=== PATIENT | female | born 2000 | race Caucasian/White ===

== ENCOUNTER 2021-02-27 16:24 | Emergency (ER) | payer SELFPAY ==
[2021-02-27 17:01] LABS: Absolute Lymphocytes (CBC) 1.8 K/uL (0.7-4.9); Basophils % 1.3 % (0-1.3); Hematocrit 29.8 % (36.0-45.0); MPV 8.4 fL (7.6-11.3); RBC Red Blood Cell Count 4.11 M/uL (3.86-4.86)
--- NOTE | 2021-02-27 17:15 | RAD REPORT ---
EXAM DESCRIPTION: CT - Head Brain Wo Cont - 02/27/2021 4:58 pm CLINICAL HISTORY: Alteration of awareness/confusion COMPARISON: None TECHNIQUE: Computed axial tomography of the head was obtained. IV contrast was not requested. All CT scans are performed using dose optimization technique as appropriate and may include automated exposure control or mA/KV adjustment according to patient size. FINDINGS: An intracranial bleed is not seen . The ventricles are normal in caliber. No extra-axial fluid collection is noted. Fluid within the sinuses/ mastoids is not seen. IMPRESSION: No acute intracranial abnormality is seen. If patient's symptoms persist MRI of the bra in would be recommended.
[2021-02-27 17:18] LABS: ALT/SGPT 31 U/L (12-78); AST/SGOT 36 U/L (15-37); Alkaline Phosphatase 91 U/L (45-117); BUN Blood Urea Nitrogen 19 mg/dL (7-18); Bicarbonate 26 mmol/L (21-32); Bilirubin Direct < 0.1 mg/dL (0-0.2); Bilirubin Total 0.3 mg/dL (0.2-1.0); Glucose Level 68 mg/dL (74-106); Potassium 3.4 mmol/L (3.5-5.1); Protein, Total 8.1 g/dL (6.4-8.2); Sodium Level 143 mmol/L (136-145)
[2021-02-27 17:57] LABS: Urine Blood Trace-intact (Negative); Urine Glucose Negative (Negative); Urine Protein 1+ (Negative); Urine Specific Gravity 1.025 (1.005-1.030)
[2021-02-27 17:57] LABS: Protime INR 1.03
[2021-02-27 19:04] LABS: Barbiturates NEGATIVE (NEGATIVE); Benzodiazepines NEGATIVE (NEGATIVE); Cocaine NEGATIVE (NEGATIVE); METHAMPHETAM NEGATIVE (NEGATIVE); Methadone NEGATIVE (NEGATIVE); Opiates NEGATIVE (NEGATIVE); Phencyclidine NEGATIVE (NEGATIVE); THC Cannibis POSITIVE (NEGATIVE)
[2021-02-27 19:08] LABS: Urine Bacteria 20-50 /HPF (<20); Urine Mucus 2+ /HPF (NONE SEEN)
[2021-02-27 20:22] LABS: Anisocytosis 1+; Blood Morphology Comment NOT SEEN (NOT SEEN); Platelet Estimate INCR; White Blood Cell Scan OK (OK)
--- NOTE | 2021-02-27 22:29 | ER ---
Nurse's Notes [facility] Name: Joanne Pitt Age: 20 yrs Sex: Female : 2000 Arrival Date: 02/27/2021 Time: 16:25 Bed 5 Private MD: Diagnosis: Unspecified psychosis not due to a substance or known physiological condition;Bipolar disorder, unspecified;Abuse of other non-psychoactive substances;UTI/ Urinary tract infection, site not specified;Anemia, unspecified Presentation: 02/27 16:26 Chief complaint: [employer] Officer Oumar brought in pt, stated that she's been in long term for sv 24 hours and started banging her head on the wall, and making incomprehensible words. Coronavirus screen: Vaccine status: Patient reports being unvaccinated. Client denies travel out of the [place] in the last 14 days. At this time, the client does not indicate any symptoms associated with coronavirus-19. Ebola Screen: No symptoms or risks identified at this time. Initial Sepsis Screen: Does the patient meet any 2 criteria? No. Patient's initial sepsis screen is negative. Does the patient have a suspected source of infection? No. Patient's initial sepsis screen is negative. Onset of symptoms was February 27, 2021. 16:26 Method Of Arrival: Law Enforcement: [facility] 16:26 Acuity: KASSIE 3 sv 02/28 09:02 Risk Assessment: Do you want to hurt yourself or someone else? Patient reports no jd3 desire to harm self or others. Triage Assessment: 02/27 16:31 General: Appears in no apparent distress. comfortable, slender, Behavior is calm, sv cooperative, appropriate for age. Pain: Denies pain. Neuro: Level of Consciousness is awake, alert, obeys commands, Oriented to person, place, time, situation, Moves all extremities. Full function Gait is steady, Speech is normal. Respiratory: Airway is patent Respiratory effort is even, unlabored, Respiratory pattern is regular, symmetrical. Derm: Skin is pink, warm \T\ dry. Historical: - Allergies: 16:30 No Known Allergies; sv - PMHx: 16:30 Depressive disorder; Anxiety; Bipolar disorder; sv - Immunization history:: Adult Immunizations unknown. - Social history:: Smoking status: unknown Patient uses street drugs, marijuana, Methamphetamine (Meth) psilocybin, xanax. Screenin:28 Abuse screen: Denies threats or abuse. Denies injuries from another. Nutritional hb screening: No deficits noted. Tuberculosis screening: No symptoms or risk factors identified. Fall Risk None identified. Assessment: 20:00 Reassessment: Patient and/or family updated on plan of care and expected duration. Pain ea level reassessed. Pt restless . Redirected easily. 02/28 01:00 Reassessment: Patient and/or family updated on plan of care and expected duration. Pain ea level reassessed. Pt resting with eyes closed respirations even and unlabored, no obvious s/s of pain or discomfort noted at this time. 03:00 Reassessment: Patient and/or family updated on plan of care and expected duration. Pain ea level reassessed. 04:00 Reassessment: Pt resting with eyes closed respirations even and unlabored, no obvious ea s/s of pain or discomfort noted at this time. 05:00 Reassessment: Patient and/or family updated on plan of care and expected duration. Pain ea level reassessed. Pt resting with eyes closed respirations even and unlabored, no obvious s/s of pain or discomfort noted at this time. 06:00 Reassessment: Patient and/or family updated on plan of care and expected duration. Pain ea level reassessed. Pt resting with eyes closed respirations even and unlabored, no obvious s/s of pain or discomfort noted at this time. 07:00 Reassessment: Patient and/or family updated on plan of care and expected duration. Pain jd3 level reassessed. pt up at bedside pacing around room muttering to self. denies pain at this time. pt denies wanting to hurt self. General: Appears in no apparent distress. comfortable, Behavior is calm, cooperative, appropriate for age. Pain: Denies pain. Neuro: Level of Consciousness is awake, alert, obeys commands, confused, Oriented to person. Cardiovascular: Denies chest pain, Capillary refill < 3 seconds Patient's skin is warm and dry. Respiratory: Airway is patent Respiratory effort is even, unlabored, Respiratory pattern is regular, symmetrical. 08:00 Reassessment: No changes from previously documented assessment. Patient and/or family jd3 updated on plan of care and expected duration. Pain level reassessed. 09:00 Reassessment: Patient and/or family updated on plan of care and expected duration. Pain jd3 level reassessed. Dr. Pierson at bedside talking discussing plan of care with pt. 09:05 Reassessment: pt states she is willing to go home, gave me her mother phone # iw [phone], left voice mail. 10:00 Reassessment: Patient appears in no apparent distress at this time. Patient and/or jd3 family updated on plan of care and expected duration. Pain level reassessed. pt continens to pace room and talking to self. medication offered to assist pt with calming down. 10:42 Reassessment: Patient and/or family updated on plan of care and expected duration. Pain jd3 level reassessed. medicated to help with anxious pacing and restlessness. charge nurse and nurse at bedside discussing plan of care with pt. 11:00 Reassessment: Patient appears in no apparent distress at this time. Patient and/or jd3 family updated on plan of care and expected duration. Pain level reassessed. pt resting in bed, awake, even and unlabored respirations. 11:14 Reassessment: Patient and/or family updated on plan of care and expected duration. Pain jd3 level reassessed. pt resting in bed with eyes closed. even and unlabored respirations. 12:00 Reassessment: Patient appears in no apparent distress at this time. No changes from jd3 previously documented assessment. Patient and/or family updated on plan of care and expected duration. Pain level reassessed. 13:00 Reassessment: No changes from previously documented assessment. Patient and/or family jd3 updated on plan of care and expected duration. Pain level reassessed. 14:00 Reassessment: Patient appears in no apparent distress at this time. No changes from jd3 previously documented assessment. Patient and/or family updated on plan of care and expected duration. Pain level reassessed. 15:00 Reassessment: Patient and/or family updated on plan of care and expected duration. Pain jd3 level reassessed. pt up and pacing room again. denies pain or wanting to hurt self at this time. 16:00 Reassessment: No changes from previously documented assessment. Patient and/or family jd3 updated on plan of care and expected duration. Pain level reassessed. 17:00 Reassessment: No changes from previously documented assessment. Patient and/or family jd3 updated on plan of care and expected duration. Pain level reassessed. 18:00 Reassessment: No changes from previously documented assessment. Patient and/or family jd3 updated on plan of care and expected duration. Pain level reassessed. 19:00 Reassessment: No changes from previously documented assessment. Patient and/or family jd3 updated on plan of care and expected duration. Pain level reassessed. 19:35 Reassessment: Pt is confused and having visual hallucinations. Pt is becoming more jb4 agitated and no longer able to be redirected, continues to want to leave to go smoke. Code live called, see MAR for orders. 21:41 Reassessment: Pt is now resting peacefully in bed with eyes closed, respirations are jb4 even and unlabored with no s/s of pain or distress noted. 03/01 02:20 Reassessment: Patient appears in no apparent distress at this time. Patient and/or jb4 family updated on plan of care and expected duration. Pain level reassessed. Pt is now awake and walking around the room. Is acting appropriately at this time. given a sand which, chips, refill on water, and a warm blanket per request. 02:46 Reassessment: Patient appears in no apparent distress at this time. Patient and/or jb4 family updated on plan of care and expected duration. Pain level reassessed. Pt is now awake, ambulating around the room. no s/s of pain or distress noted. Respirations are even and unlabored. 05:59 Reassessment: Patient appears in no apparent distress at this time. Patient and/or jb4 family updated on plan of care and expected duration. Pain level reassessed. Pt is now fully awake, bathed in the bedside sink, given a gown and towel, reports hearing auditory hallucinations and talks about people who are not there. 07:02 General: Appears in no apparent distress. comfortable, Behavior is calm. General:. rb3 Pain: Denies pain. Neuro: Level of Consciousness is awake, alert, obeys commands, Oriented to person, place. Cardiovascular: Patient's skin is warm and dry. Respiratory: Airway is patent Respiratory effort is even, unlabored, Respiratory pattern is regular, symmetrical. 08:00 Reassessment: Patient appears in no apparent distress at this time. No changes from rb3 previously documented assessment. 09:00 Reassessment: Patient appears in no apparent distress at this time. Pt is walking rb3 around the room and folding her blankets. Patient denies pain at this time. 10:00 Reassessment: Patient appears in no apparent distress at this time. Patient and/or rb3 family updated on plan of care and expected duration. Pain level reassessed. Patient is alert, oriented x 3, equal unlabored respirations, skin warm/dry/pink. 10:30 Reassessment: Patient appears in no apparent distress at this time. No changes from rb3 previously documented assessment. Vital Signs: 02/27 16:26 BP 99 / 72; Pulse 88; Resp 14; Temp 98; Pulse Ox 99% ; Weight 45.36 kg; Height 4 ft. 11 sv in. (149.86 cm); Pain 0/10; 02/28 06:14 BP 99 / 67; Pulse 73; Resp 16; Pulse Ox 100% on R/A; oe 21:42 Pulse 83; Resp 14; Pulse Ox 99% on R/A; jb4 03/01 07:10 BP 101 / 69; Pulse 74; Resp 16; Pulse Ox 100% ; Pain 0/10; rb3 02/27 16:26 Body Mass Index 20.20 (45.36 kg, 149.86 cm) sv ED Course: 02/27 16:25 Patient arrived in ED. sv 16:26 Elma Matute, CHRISTIAN is Primary Nurse. sv 16:26 Blaze Headley PA is PHCP. cp 16:26 Meka Pratt MD is Attending Physician. cp 16:28 Arm band placed on. hb 16:30 Triage completed. sv 16:32 Patient has correct armband on for positive identification. Bed in low position. sv 16:58 CT Head Brain wo Cont In Process Unspecified. EDMS 17:00 PT-INR Sent. sv 17:00 Acetaminophen Sent. sv 17:00 Basic Metabolic Panel Sent. sv 17:00 CBC with Diff Sent. sv 17:00 ETOH Level Sent. sv 17:00 Hepatic Function Sent. sv 17:11 Test, Serum Sent. sv 17:50 Inserted saline lock: 20 gauge in left antecubital area, using aseptic technique. sv ,using aseptic technique. done by [facility] Blood collected. 22:33 Initiated transfer at [facility] with Joseph. Requested for exclusionary and pt chart to tt3 be faxed to for evaluation. Information passed on to VIET Wallace provider of pt and Mimi Barrios RN, primary nurse. 02/28 07:41 Attending Physician role handed off by Meka Pratt MD [facility] 07:41 Blaze Pierson MD is Attending Physician. [facility] 09:00 Pt clinical information faxed to [facility]. em1 10:16 Primary Nurse role handed off by Elma Matute RN jd3 10:16 Tommy Lubin RN is Primary Nurse. jd3 15:42 Blaze Headley [facility]. cp 03/01 10:55 No provider procedures requiring assistance completed. IV discontinued, intact, rb3 bleeding controlled, No redness/swelling at site. Pressure dressing applied. Administered Medications: 02/27 22:36 Drug: Geodon (ziprasidone) 10 mg Route: IM; Site: right deltoid; ea 02/28 00:00 Follow up: Response: No adverse reaction 02/27 22:41 Drug: Potassium Effervescent Tablet 50 mEq Route: PO; ea 02/28 00:00 Follow up: Response: No adverse reaction 06:00 Drug: Rocephin (cefTRIAXone) 1 grams Route: IV; Rate: per protocol; Site: left ea antecubital; 07:00 Follow up: Response: No adverse reaction; IV Status: Completed infusion jd3 10:41 Drug: Geodon (ziprasidone) 20 mg Route: IM; Site: right deltoid; jd3 11:40 Follow up: Response: No adverse reaction jd3 10:42 Drug: Ativan (LORazepam) 1 mg Route: IVP; Site: left antecubital; jd3 11:40 Follow up: Response: No adverse reaction jd3 19:35 Not Given (Physician Discretion): Benadryl (diphenhydrAMINE) 25 mg IVP once cp 19:36 Not Given (Physician Discretion): Ativan (LORazepam) 1 mg IVP once cp 19:44 Drug: Ativan (LORazepam) 1 mg {Note: Administered by CHRISTIAN Carrington.} Route: IVP; Site: left jb4 antecubital; 19:45 Drug: Geodon (ziprasidone) 10 mg Route: IM; Site: right gluteus; jb4 19:47 Drug: Nicoderm CQ Patch 21 mg/24 hr 1 patches Route: Transdermal; Site: anterior chest jb4 wall; 20:48 Not Given (Other Intervention Used): Ativan (LORazepam) 1 mg IM once jb4 Outcome: 02/27 22:28 ER care complete, transfer ordered by . sabi 03/01 10:55 AMA Left before signing form. rb3 Condition: stable 10:55 Discharge instructions given to Pt left the ED. rb3 Signatures: Dispatcher [employer] EDMS Elma Matute RN RN Blaze Vega MD MD cha Williams, Irene RN RN Akira Mitchell em1 Blaze Headley PA PA cp Baxter, Heather, RN RN Edin Trevino RN RN jb4 King Cruz Elena, RN RN ea Davies, Jonathon, RN RN jd3 Jett James tt3 Sugar Troy RN RN rb3 Corrections: (The following items were deleted from the chart) 02/28 09:26 09:22 Reassessment: iw iw 10:16 07:00 Neuro: Level of Consciousness is awake, alert, obeys commands, confused, Oriented jd3 to person, place, time, jd3 10:44 10:42 Reassessment: Patient and/or family updated on plan of care and expected jd3 duration. Pain level reassessed. medicated to help with anxious pacing and restlessness. jd3 03/01 18:47 11:30 Reassessment: Patient appears in no apparent distress at this time. Patient rb3 and/or family updated on plan of care and expected duration. Pain level reassessed. Patient is alert, oriented x 3, equal unlabored respirations, skin warm/dry/pink. Patient denies pain at this time. rb3 18:50 14:54 Patient left the ED. iw rb3
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
[2021-02-27] MEDS ORDERED: ZIPRASIDONE MESYLA 20 MG/VIAL IM ONE (22:52)
[2021-02-27] MEDS ORDERED: POTASSIUM 25 MEQ EFFERV TAB ONE (22:52)
[2021-02-28] MEDS ORDERED: CEFTRIAXONE/SWI 1gm 1 GM/10 ML SYR ONE (05:31)
[2021-02-28] MEDS ORDERED: ZIPRASIDONE MESYLA 20 MG/VIAL IM ONE ×2 (10:44→19:59)
[2021-02-28] MEDS ORDERED: LORazepam 2 MG/ML VIAL ONE ×2 (10:44→19:52)
[2021-02-28] MEDS ORDERED: WATER FOR INJ,STERILE 10 ML ONE ×2 (10:45→20:00)
--- NOTE | 2021-02-28 15:12 | EKG ---
Test Date: 2021-02-27 Test Time: 17:32:26 [employer]: SV MEASUREMENT RESULTS: Intervals: Rate: 67 MA: 114 QRSD: 86 QT: 394 QTc: 416 [place]: P: 65 MA: 114 QRS: 87 T: 73 INTERPRETIVE STATEMENTS: Normal sinus rhythm with sinus arrhythmia RSR' or QR pattern in V1 suggests right ventricular conduction delay Borderline ECG No previous ECG available for comparison Electronically Signed On 02-28-21 15:10:53 CDT by Quang Douglas
[2021-02-28] MEDS ORDERED: NICOTINE 21 MG/PAT TD ONE (19:51)
[2021-02-28] MEDS ORDERED: DIPHENHYDRAMINE 50 MG/ML VIAL ONE (19:52)
[2021-03-01 17:54] VITALS: TEMP 98
[2021-03-01 17:57] VITALS: BP 101/69; O2SAT 100
== END 2021-03-01 14:54 ==
LOC: ER 16:24
DX: F29 Unspecified psychosis not due to a substance or known physiological condition (principal); F31.9 Bipolar disorder, unspecified; F55.8 Abuse of other non-psychoactive substances; N39.0 Urinary tract infection, site not specified; D64.9 Anemia, unspecified
CPT/HCPCS: 36415; 70450; 80048; 80076; 80307; 80320; 80329; 81003; 81015; 84703; 85025; 85610; 85730; 87086; 87088; 93005; 96365; 96372; 96375; 99284; J3486; U0003